=== PATIENT | male | born 1955 | race Caucasian/White ===

== ENCOUNTER 2024-08-19 11:05 | Emergency (ER) | payer MEDICARE, SELFPAY ==
[2024-08-19 11:08] VITALS: BP 109/57; PULSE 95; RESP 16; TEMP 37.6; O2SAT 99
[2024-08-19 11:09] VITALS: PULSE 103; RESP 16; O2SAT 99; BMI 25.9
--- NOTE | 2024-08-19 11:29 | EKG_ITS ---
[facility] Test Date: 2024-08-19 Pat Name: ZEV MITCHELL Department: Room: - Gender: Male [employer] Supervisor: : 1955 Requested By: Keyla Cuellar Order Number: [id number] Reading MD: Keyla Cuellar Measurements Intervals [place] Rate: 103 P: 63 WY: 223 QRS: 42 QRSD: 86 T: 73 QT: 349 QTc: 457 Interpretive Statements SINUS TACHYCARDIA WITH FIRST DEGREE AV BLOCK Compared to ECG 01/02/2022 13:06:16 First degree AV block now present /[email or web address]/[id number]
--- NOTE | 2024-08-19 11:30 | EDNOTE_ITS ---
ED Dizzyness RME/HPI General Chief Complaint: Dizziness Stated Complaint: HYPOTENSION Time Seen by Provider: 08/19/24 11:20 Arrival date/time: 08/19/24 11:05 RME / HPI RME / HPI Narrative: 68-year-old male patient with significant history of hypertension diabetes mellitus, and ESRD, who was brought in by EMS for evaluation regarding dizziness. Patient had hemodialysis today, pulled out 2.5 L of fluid, went outside waiting for his ride, more than 45 minutes, and according to him it was hot, and when he got up patient felt dizzy and sat to the ground. Patient denies any complete LOC. Denies any head trauma or fall. Denies any chest pain. Patient denies any headache. Denies any other complaints. Patient received 1.5 L of fluid. When the EMS arrived patient's blood pressure was noted to be on the low 70s. Related Data Home Medications ?Medication ?Instructions ?Recorded ?Confirmed insulin degludec 100 unit/mL (3 16 unit subcut QDAY 04/20/23 mL) subcutaneous pen (Tresiba FlexTouch U-100 insulin) tamsulosin 0.4 mg capsule (Flomax) 0.4 mg PO QDAY 03/2604/20/23 Previous Rx's ?Medication ?Instructions ?Recorded acetaminophen 650 mg 650 mg PO Q12H PRN pain #60 tabs 04/23/23 tablet,extended release (Tylenol 8 Hour) albuterol sulfate 90 mcg/actuation 1 puff inhalation Q ID PRN 04/23/23 aerosol inhaler shortness of breath or wheez ing #8.5 grams atorvastatin 80 mg tablet 80 mg PO QPM #30 tabs clopidogrel 75 mg tablet (Plavix) 75 mg PO QDAY #30 ta bs 04/23/23 fluticasone propionate 230 2 puff inhalation BID PRN 0 04/23/23 mcg-salmeterol 21 mcg/actuation shortness of breath #1 2 grams HFA inhaler (Advair HFA) prednisone 20 mg tablet 40 mg (2 x 20 mg) PO QDAY #4 tabs 04/23/23 tramadol 50 mg tablet 50 mg PO Q6H PRN pain #10 ta bs 04/23/23 Allergies Allergy/AdvReac Type Severity Reaction Status Date / Time vancomycin Allergy Unknown Redness of Verified 08/19/24 11:21 Skin; SHAYE DONNIE SYNDROME Review of Systems Review of Systems Narrative Review of Systems: Review of system reviewed and within normal limits except mentioned in HPI ED Exam Narrative Physical exam: VITAL SIGNS: Reviewed. GENERAL APPEARANCE: Alert and interactive, follows commands, no acute distress, HEAD AND FACE: Non-traumatic. ENT: PERRL, pink conjunctivitis, eyelid no trauma, Mucous membrane moist. NECK: Supple, nontender, no nuchal rigidity. CHEST: No tenderness, no crepitus, no paradoxical movement, no retractions. LUNGS: Clear, well ventilated, symmetric, no rales, no wheezing, no ronchi, no stridor, good breath sounds bilaterally. HEART: Regular rate, regular rhythm, no murmur, no gallops. ABDOMEN: Soft, positive bowel sounds, nondistended, no guarding, nontender, no rebound, no masses, RECTAL: Deferred. GENITAL: Deferred. NEUROLOGICAL: Gross motor function intact sensory function intact, Appropriate for age. MUSCULOSKELETAL: low back nontender, full range of motion. EXTREMITIES: Left AV fistula, with thrill, no bleeding noted, nontender, full range of motion. SKIN: Color pink, dry, no rash, no lacerations, no abrasions, no contusions. LYMPHATICS: Deferred. Course Quality Measures none Orders Category Date Time Status EKG (ED ONLY) *Do not use* NOW Care 08/19/24 11:30 Completed EKG (ED Only) Stat Exams 08/19/24 11:29 Draft CBC Stat Lab 08/19/24 11:44 Completed CMP [Comprehensive Metabolic Panel] Stat Lab 08/19/24 11:44 Completed UA, C/S IF [Urinalysis, C/S if Indicated] Stat Lab 08/19/24 11:30 Ordered Vital Signs Vital signs: Vital Signs Temperature 99.7 F 08/19/24 11:08 Pulse Rate 95 08/19/24 11:08 Respiratory Rate 16 08/19/24 11:08 Blood Pressure 109/57 L 08/19/24 11:08 Pulse Oximetry (%) 99 08/19/24 11:08 Oxygen Delivery Method Room Air 08/19/24 11:08 Dizziness MDM Narrative MDM Narrative:: 68-year-old male patient with significant history of hypertension diabetes mellitus, and ESRD, who was brought in by EMS for evaluation regarding dizziness. Patient had hemodialysis today, pulled out 2.5 L of fluid, went outside waiting for his ride, more than 45 minutes, and according to him it was hot, and when he got up patient felt dizzy and sat to the ground. Patient denies any complete LOC. Denies any head trauma or fall. Denies any chest pain. Patient denies any headache. Denies any other complaints. Patient received 1.5 L of fluid. When the EMS arrived patient's blood pressure was noted to be on the low 70s. EKG as & by me showed sinus rhythm, ventricular to 102 bpm, ND interval 223 MS, no ST segment elevation or depression noted. Patient's workup is significant for chronic kidney disease creatinine was noted to be 3.7 BUN is 15 is normal potassium is normal. Patient's blood pressure was noted to be 150s over 80s prior to discharge. Patient verbalized significant improvement of symptoms patient is ambulatory unaided. No recurrence of hypotension versus dizziness in the emergency room. Patient data External records reviewed:: None Clinical information provided by:: patient Social determinants that could affect healthcare access:: none Patient has the following chronic illnesses:: ESRD on hemodialysis hypertension diabetes mellitus, COPD How is presenting disease/condition affected by chronic disease/condition?: exacerbated by Evaluation data The following diagnostics were reviewed and interpreted by me:: lab results and EKG tracing(s) Lab and/or radiology exams considered but not ordered:: None Interpretation Summary: Patient's workup all came back unremarkable Medications / Prescriptions Medications or Prescriptions considered but not ordered:: None Medication administrations:: None Consultations Consultation(s) initiated? (list below): No Diagnosis Dizziness Differential Diagnosis: other (Dizziness, hypotension, status post dialysis for ESRD) Most likely diagnosis given after review of the tests above:: Dizziness Admission Indicated Admission indicated?: not indicated Explain why admission is indicated or not indicated:: Stable Admission Request Was there a request for admission?: No Disposition Plan Disposition Plan: Discharge Discharge Attestation Discharge Attestation: The patient and all family members were given an opportunity to ask questions and understood the discharge instructions. Discharge instructions specifically effects, indications for sooner follow up or return to the emergency department, and the expected course of current diagnosis. Patient condition: Stable Discharge Plan Plan Patient Disposition: HOME (Self Care) Discharge Disposition comment: Stable Prescriptions/Referrals Prescriptions/Med Rec: No Action insulin degludec [Tresiba FlexTouch U-100] 100 unit/mL (3 mL) Insulin Pen 16 unit SUBCUT QDAY tamsulosin [Flomax] 0.4 mg Capsule 0.4 mg PO QDAY fluticasone propion-salmeterol [Advair HFA] 230-21 mcg/actuation HFA aerosol inhaler 2 puff inhalation BID PRN (Reason: shortness of breath) Qty: 12 0RF Rx Instructions: administer with spacer albuterol sulfate 90 mcg/actuation HFA aerosol inhaler 1 puff inhalation QID PRN (Reason: shortness of breath or wheezing) Qty: 8.5 0RF prednisone 20 mg tablet 40 mg PO QDAY Qty: 4 0RF acetaminophen [Tylenol 8 Hour] 650 mg tablet extended release 650 mg PO Q12H PRN (Reason: pain) Qty: 60 0RF tramadol 50 mg tablet 50 mg PO Q6H PRN (Reason: pain) Qty: 10 0RF clopidogrel [Plavix] 75 mg tablet 75 mg PO QDAY Qty: 30 0RF atorvastatin 80 mg tablet 80 mg PO QPM Qty: 30 0RF Referrals: Cullen Falk MD [Primary Care Provider] - In 1 week Problem List Clinical Impression: Dizziness Patient/Caregiver Discharge Instructions Discharge Activity: activity as tolerated Education Materials: Dizziness Fainting Poss Causes Additional Instructions: Thank you for the opportunity for serving you today. You are stable for discharged . You are advised to: Follow-up with your PCP in 1 to 2 days Return to ED for worsening of symptoms Print Language: Malay Stand Alone Forms: Marilu Award Info., Patient Portal Info Letter PA/NEWSPAPER PRESS OPERATOR APPRENTICE Supervising Physician PA/NEWSPAPER PRESS OPERATOR APPRENTICE Supervising Physician: Rashard Mcarthur MD
[2024-08-19 12:04] LABS: Basophils # (Auto) 0.1 Thou/mm3 (0.0-0.2); Basophils % (Auto) 1 % (0-2.5); Eosinophils # (Auto) 0.2 Thou/mm3 (0.0-0.5); Eosinophils % (Auto) 2 % (0-10); Hematocrit 28.8 % (41.0-53.0); Hemoglobin 10.3 g/dL (13.5-16.0); Immature Granulocytes % (Auto) 0 % (0-0); Immature Granulocytes Auto 0.04 Thou/mm3 (0.00-0.00); Lymphocytes # (Auto) 1.4 Thou/mm3 (1.0-4.8); Lymphocytes % (Auto) 14 % (10-50); Mean Corpuscular HGB Conc 35.8 g/dl (31.0-37.0); Mean Corpuscular Hemoglobin 30.6 pg (25.0-35.0); Mean Corpuscular Volume 86 fL (80-100); Monocytes # (Auto) 0.9 Thou/mm3 (0.0-0.8); Monocytes % (Auto) 9 % (0-12); Neutrophils # (Auto) 7.2 Thou/mm3 (1.8-7.7); Neutrophils % (Auto) 74 % (37-80); Nucleated Red Blood Cell % 0 /100 WBC (0); Platelet Count 236 Thou/mm3 (140-440); RDW Standard Deviation 44.1 fL (35.1-43.9); Red Blood Count 3.37 Miln/mm3 (4.50-5.90); White Blood Count 9.7 Thou/mm3 (3.8-10.6)
[2024-08-19 12:34] LABS: Alanine Aminotransferase 10 U/L (10-49); Albumin, Serum 3.9 gm/dL (3.4-4.8); Albumin/Globulin Ratio 1.6 (1.2-2.2); Alkaline Phosphatase 109 U/L (46-116); Anion Gap 8 (7-16); Aspartate Amino Transferase < 10 U/L (0-34); BUN/Creatinine Ratio 4 Ratio (12-20); Bilirubin,Total 0.4 mg/dL (0.3-1.2); Blood Urea Nitrogen 15 mg/dL (9-23); Calcium 8.8 mg/dL (8.3-10.6); Calcium (Corrected) 8.9 mg/dL (8.5-10.1); Carbon Dioxide 32.3 mMol/L (20.0-31.0); Chloride 99 mMol/L (98-107); Creatinine (Component) 3.7 mg/dL (0.6-1.3); Estimated Creatinine Clearance 19.2 mL/min (>60); Globulin 2.4 gm/dL (2.3-3.5); Glucose 207 mg/dL (74-106); Osmolality,Calculated 284 (275-295); Potassium 3.7 mMol/L (3.4-5.1); Sodium 139 mMol/L (136-145); Total Protein 6.3 gm/dL (5.7-8.2); eGFR 17 See Note
[2024-08-19 13:12] VITALS: BP 152/80; PULSE 99; RESP 14; TEMP 36.9; O2SAT 98
[2024-08-19 15:23] LABS: Collection Type, Urine Clean Catch
[2024-08-19 15:32] LABS: Bilirubin,Urine Negative (Negative); Blood,Urine Negative (Negative); Clarity,Urine Clear (Clear/Hazy); Color,Urine Lt-Yellow (Lt Yel-Yel); Culture Indicated,Urine Not Indicated; Glucose, Urine 3+ (Negative); Ketones,Urine Negative (Negative); Leukocyte Esterase,Urine Negative (Negative); Nitrite,Urine Negative (Negative); PH,Urine 8.5 (5.0-7.0); Protein,Urine 2+ (Neg - Trace); RBC,Urine 2 /hpf (0-3); Specific Gravity,Urine 1.013 (1.001-1.035); Squamous Epithelial Cell,Urine < 1 /hpf (0-5); Transitional Epi Cells,Urine 1 /hpf (0-5); Urobilinogen,Urine Negative mg/dL (0.0-1.0); WBC,Urine 2 /hpf (0-5)
[2024-08-19 15:42] VITALS: BP 133/58; PULSE 101; RESP 19; TEMP 37.3; O2SAT 95
== END 2024-08-19 15:49 | disposition home or self-care (01) ==
PROVIDERS: Nurse Practitioner Family; Emergency Provider Emergency Medicine; PCP Family Medicine
DX: R42 Dizziness and giddiness (principal); I44.0 Atrioventricular block, first degree; I12.0 Hypertensive chronic kidney disease with stage 5 chronic kidney disease or end stage renal disease; E11.22 Type 2 diabetes mellitus with diabetic chronic kidney disease; N18.6 End stage renal disease; Z99.2 Dependence on renal dialysis
CPT/HCPCS: 36415; 80053; 81001; 85025; 93005; 99283